=== PATIENT | male | born 1970 | race Caucasian/White ===

== ENCOUNTER 2018-08-30 04:55 | Observation (INO) | payer MEDICAID ==
--- NOTE | 2018-08-30 05:06 | EDPHY ---
H & P Stated Complaint: 0200 upper abd pain Source: Patient - Personal History Current Tetanus/Diphtheria Vaccine: Yes Current Tetanus Diphtheria and Acellular Pertussis (TDAP): Yes - Medical/Surgical History Hx Asthma: No Hx Chronic Respiratory Disease: No Hx Diabetes: No Hx Cardiac Disease: No Hx Renal Disease: No Hx Cirrhosis: No Hx Alcoholism: No Hx HIV/AIDS: No Hx Splenectomy or Spleen Trauma: No Other PMH: denies - Social History Smoking Status: Current every day smoker <Barrett Porras - Last Filed: 08/30/18 08:03> <Sondra Worley - Last Filed: 08/30/18 17:02> Time Seen by Provider: 08/30/18 05:06 HPI/ROS: HPI CHIEF COMPLAINT: Abdominal pain. HISTORY OF PRESENT ILLNESS: Patient is a 47-year-old male, denies significant medical history except for hypertension, presents to the emergency room with abdominal pain. This started around 2:00 a.m.. Woke him from sleep. He does state that he had 3 beers tonight as well as chicken Haile, felt fine he ate and drank around 530 at night. He went to bed. Around 2:00 a.m. He woke with upper abdominal pain and did have 1 episode of vomiting. He denies any chest pain or shortness of breath. No diarrhea. He is mainly tender in his upper abdomen right upper quadrant epigastric and mid abdomen. Past Medical History: Hypertension Past Surgical History: ASD cardiac repair at age 3 Social History: Occasional alcohol use. Smokes tobacco. Marijuana. Family History: Noncontributory ROS REVIEW OF SYSTEMS: 10 Systems were reviewed and negative with the exception of the elements mentioned in the history of present illness. Exam Constitutional triage nursing summary reviewed, vital signs reviewed, awake/ alert. Eyes normal conjunctivae and sclera, EOMI, PERRLA. HENT normal inspection, atraumatic, moist mucus membranes, no epistaxis, neck supple/ no meningismus, no raccoon eyes. Respiratory clear to auscultation bilaterally, normal breath sounds, no respiratory distress, no wheezing. Cardiovascular rate normal, regular rhythm, no murmur, no edema, distal pulses normal. Gastrointestinal protuberant large abdomen, mild tender palpation right upper quadrant, mid abdomen, epigastric,, no rebound, no guarding, normal bowel sounds , no distension, no pulsatile mass. Genitourinary no CVA tenderness. Musculoskeletal no midline vertebral tenderness, full range of motion, no calf swelling, no tenderness of extremities, no meningismus, good pulses, neurovascularly intact. Skin pink, warm, & dry, no rash, skin atraumatic. Neurologic awake, alert and oriented x 3, AAOx3, moves all 4 extremities equally, motor intact, sensory intact, CN II-XII intact, normal cerebellar, normal vision, normal speech. Psychiatric normal mood/affect. Heme/Lymph/Immune no lymphadenopathy. Differential Diagnosis: Differential diagnosis includes but is not limited to and in no particular order: Bowel obstruction, appendicitis, gallbladder disease, diverticulitis, colitis, enteritis, perforated viscus, gastritis, GERD , esophagitis, urinary tract infection, pyelonephritis, kidney stones Medical Decision Making: Plan for this patient IV establishment IV fluid bolus , IV Dilaudid 1 mg for pain control, basic labs CT scan abdomen pelvis with IV contrast. Re-evaluation: Troponin negative. EKG interpretation by me on record in [employer] system. Impression time of EKG 5:26 a.m. Sinus rhythm rate of 69, left anterior fascicular block present. No ST elevation. There are Q-waves noted V1 V2 V3. No old EKG to compare this to. CT scan abdomen pelvis with IV contrast faxed me by direct Radiology at time 6: 49 a.m. This shows a 2.5 cm gallstone is noted in the gallbladder neck recommend right upper quadrant ultrasound Fatty infiltration liver. Plan for this patient ultrasound right upper quadrant. 7am End of shift: Signed over at 7:[address] Worley. Follow up US and re-eval patient. Patient still needs to get US. CT scan concerning for impacted neck stone. Most likely cause of pain. Will obtain us/ re-eval and most likely admit due to abdominal pain. No cp or sob. Negative trop. Signed over to Dr. Worley at 7am. (Barrett Porras) Constitutional: Initial Vital Signs Temperature (C) 36.6 C 08/30/18 04:57 Heart Rate 83 08/30/18 04:57 Respiratory Rate 18 08/30/18 04:57 Blood Pressure 181/125 H 08/30/18 04:57 O2 Sat (%) 95 08/30/18 04:57 O2 Delivery Mode Nasal Cannula O2 (L/minute) 4 Allergies/Adverse Reactions: No Known Allergies Allergy (Verified 08/30/18 11:38) Home Medications: Medication Instructions Recorded Atorvastatin Calcium [Lipitor 40 40 mg PO DAILY 08/30/18 mg (*)] Ibuprofen [Motrin (*)] 200 mg PO DAILY PRN 08/30/18 Losartan Potassium 100 mg PO DAILY 08/30/18 Omeprazole 20 mg PO DAILY 08/30/18 Medical Decision Making <Barrett Porras - Last Filed: 08/30/18 08:03> - Diagnostics Imaging: Discussed imaging studies w/ plant physiologist Radiologist <Sondra Worley - Last Filed: 08/30/18 17:02> - Diagnostics Imaging Results: Imaging Impressions Abdomen CT 08/30/18 05:15 Impression: 1. Cholelithiasis without evidence of acute cholecystitis. With high clinical suspicion for acute cholecystitis, nuclear medicine HIDA scan or right upper quadrant ultrasound could be obtained for further evaluation. 2. Nonspecific submucosal fat deposition which may be secondary to obesity, however can also be seen with inflammatory bowel disease or celiac disease. 3. Perivesicular fat haziness is nonspecific but may represent cystitis, clinical/laboratory correlation is recommended. Final results are concordant with initial interpretation. Preliminary report was communicated to the referring provider at 6:49 AM. DANYELLE. Abdomen Ultrasound 08/30/18 06:54 Impression: 1. Cholelithiasis without evidence of acute cholecystitis. 2. Diffuse fatty infiltration of an enlarged liver. Other Provider: I assumed care of this patient at 7:[address] Barrett Porras. At this point we are awaiting the results of a ultrasound. Patient's ultrasound demonstrates a 2.5 cm gallstone lodged in the gallbladder neck. There are multiple nonmobile stones in the gallbladder. No gallbladder wall thickening, common bile duct is normal in size, no pericholecystic fluid. On re-examination the patient continues to have significant discomfort. Has a positive Rosario's sign. Patient course was discussed with Dr. Fredy York. Dr. York will evaluate the patient in Emergency Department. Seen and examined by the surgeon. Patient will be admitted to the hospital of Dr. York's service with plan for operative intervention later today. ( Sondra Worley) - Data Points Laboratory Results: Laboratory Results 08/30/18 05:30 08/30/18 05:30 08/30/18 08/30/18 08/30/18 09:34 08:42 05:37 WBC RBC Hgb POC Hgb 19.4 gm/dL H gm/dL (13.7-17.5) Hct POC Hct 57 % H % (40-51) MCV MCH MCHC RDW Plt Count MPV Neut % (Auto) Lymph % (Auto) King % (Auto) Eos % (Auto) Baso % (Auto) Nucleat RBC Rel Count Absolute Neuts (auto) Absolute Lymphs (auto) Absolute Monos (auto) Absolute Eos (auto) Absolute Basos (auto) Absolute Nucleated RBC Immature Gran % Immature Gran # PT INR APTT VBG Lactic Acid 1.5 mmol/L mmol/L (0.7-2.1) POC Sodium 141 mEq/L mEq/L (135-145) Sodium POC Potassium 4.0 mEq/L mEq/L (3.3-5.0) Potassium POC Chloride 106 mEq/L mEq/L (97-110) Chloride Carbon Dioxide POC Total CO2 20 mEq/L L mEq/L (22-31) Anion Gap POC BUN 14 mg/dL mg/dL (7-23) BUN Creatinine POC Creatinine 1.0 mg/dL mg/dL (0.7-1.3) Estimated GFR Glucose POC Glucose 145 mg/dL H mg/dL (70-100) Calcium Total Bilirubin Conjugated Bilirubin Unconjugated Bilirubin AST ALT Alkaline Phosphatase POC Troponin I Total Protein Albumin Lipase Urine Color YELLOW Urine Appearance CLEAR Urine pH 5.0 (5.0-7.5) Ur Specific [place] > 1.060 H (1.002-1.030) Urine Protein NEGATIVE (NEGATIVE) Urine Ketones NEGATIVE (NEGATIVE) Urine Blood NEGATIVE (NEGATIVE) Urine Nitrate NEGATIVE (NEGATIVE) Urine Bilirubin NEGATIVE (NEGATIVE) Urine Urobilinogen NEGATIVE EU EU (0.2-1.0) Ur Leukocyte Esterase NEGATIVE (NEGATIVE) Urine Glucose NEGATIVE (NEGATIVE) 08/30/18 08/30/18 08/30/18 05:32 05:30 05:30 WBC RBC Hgb POC Hgb Hct POC Hct MCV MCH MCHC RDW Plt Count MPV Neut % (Auto) Lymph % (Auto) King % (Auto) Eos % (Auto) Baso % (Auto) Nucleat RBC Rel Count Absolute Neuts (auto) Absolute Lymphs (auto) Absolute Monos (auto) Absolute Eos (auto) Absolute Basos (auto) Absolute Nucleated RBC Immature Gran % Immature Gran # PT 12.1 SEC SEC (12.0-15.0) INR 0.93 (0.83-1.16) APTT 28.6 SEC SEC (23.0-38.0) VBG Lactic Acid POC Sodium Sodium 139 mEq/L mEq/L (135-145) POC Potassium Potassium 4.6 mEq/L mEq/L (3.5-5.2) POC Chloride Chloride 108 mEq/L mEq/L (97-110) Carbon Dioxide 19 mEq/l L mEq/l (22-31) POC Total CO2 Anion Gap 12 mEq/L mEq/L (6-14) POC BUN BUN 14 mg/dL mg/dL (7-23) Creatinine 0.9 mg/dL mg/dL (0.7-1.3) POC Creatinine Estimated GFR > 60 Glucose 141 mg/dL H mg/dL (70-100) POC Glucose Calcium 10.0 mg/dL mg/dL (8.5-10.4) Total Bilirubin 0.8 mg/dL mg/dL (0.1-1.4) Conjugated Bilirubin 0.3 mg/dL mg/dL (0.0-0.5) Unconjugated Bilirubin 0.5 mg/dL mg/dL (0.0-1.1) AST 55 IU/L IU/L (17-59) ALT 80 IU/L H IU/L (21-72) Alkaline Phosphatase 170 IU/L H IU/L (38-126) POC Troponin I 0.01 ng/mL ng/mL (0.00-0.08) Total Protein 7.5 g/dL g/dL (6.3-8.2) Albumin 4.4 g/dL g/dL (3.5-5.0) Lipase 145 IU/L IU/L (23-300) Urine Color Urine Appearance Urine pH Ur Specific [place] Urine Protein Urine Ketones Urine Blood Urine Nitrate Urine Bilirubin Urine Urobilinogen Ur Leukocyte Esterase Urine Glucose 08/30/18 05:30 WBC 7.12 10^3/uL 10^3/uL (3.80-9.50) RBC 6.38 10^6/uL 10^6/uL (4.40-6.38) Hgb 18.7 g/dL H g/dL (13.7-17.5) POC Hgb Hct 56.0 % H % (40.0-51.0) POC Hct MCV 87.8 fL fL (81.5-99.8) MCH 29.3 pg pg (27.9-34.1) MCHC 33.4 g/dL g/dL (32.4-36.7) RDW 14.6 % % (11.5-15.2) Plt Count 264 10^3/uL 10^3/uL (150-400) MPV 10.1 fL fL (8.7-11.7) Neut % (Auto) 61.2 % % (39.3-74.2) Lymph % (Auto) 21.2 % % (15.0-45.0) King % (Auto) 9.8 % % (4.5-13.0) Eos % (Auto) 5.9 % % (0.6-7.6) Baso % (Auto) 1.5 % % (0.3-1.7) Nucleat RBC Rel Count 0.0 % % (0.0-0.2) Absolute Neuts (auto) 4.35 10^3/uL 10^3/uL (1.70-6.50) Absolute Lymphs (auto) 1.51 10^3/uL 10^3/uL (1.00-3.00) Absolute Monos (auto) 0.70 10^3/uL 10^3/uL (0.30-0.80) Absolute Eos (auto) 0.42 10^3/uL H 10^3/uL (0.03-0.40) Absolute Basos (auto) 0.11 10^3/uL H 10^3/uL (0.02-0.10) Absolute Nucleated RBC 0.00 10^3/uL 10^3/uL (0-0.01) Immature Gran % 0.4 % % (0.0-1.1) Immature Gran # 0.03 10^3/uL 10^3/uL (0.00-0.10) PT INR APTT VBG Lactic Acid POC Sodium Sodium POC Potassium Potassium POC Chloride Chloride Carbon Dioxide POC Total CO2 Anion Gap POC BUN BUN Creatinine POC Creatinine Estimated GFR Glucose POC Glucose Calcium Total Bilirubin Conjugated Bilirubin Unconjugated Bilirubin AST ALT Alkaline Phosphatase POC Troponin I Total Protein Albumin Lipase Urine Color Urine Appearance Urine pH Ur Specific [place] Urine Protein Urine Ketones Urine Blood Urine Nitrate Urine Bilirubin Urine Urobilinogen Ur Leukocyte Esterase Urine Glucose Medications Given: Hydromorphone HCl (Dilaudid) 0.4 mg IVP Q4HRS PRN PRN Reason: Pain, Severe Unable to Take PO Stop: 09/09/18 09:47 Last Admin: 08/30/18 16:28 Dose: 0.4 mg Potassium Chloride/Dextrose/Sod Cl (D5w 1/2 Ns W/ 20 Kcl/L) 1,000 mls @ 150 mls /hr IV CONT JOVI Stop: 02/26/19 09:59 Last Admin: 08/30/18 11:28 Dose: 1,000 mls Ondansetron HCl (Zofran) 4 mg IVP Q6 PRN PRN Reason: Nausea/Vomiting, Use 1st Stop: 02/26/19 09:47 Last Admin: 08/30/18 16:37 Dose: 4 mg Discontinued Medications Hydromorphone HCl (Dilaudid) 1 mg IVP EDNOW ONE Stop: 08/30/18 05:16 Last Admin: 08/30/18 05:26 Dose: 1 mg Hydromorphone HCl (Dilaudid) 1 mg IVP EDNOW ONE Stop: 08/30/18 07:21 Last Admin: 08/30/18 07:28 Dose: 1 mg Hydromorphone HCl (Dilaudid) 1 mg IVP EDNOW ONE Stop: 08/30/18 09:09 Last Admin: 08/30/18 09:17 Dose: 1 mg Sodium Chloride (Ns) 1,000 mls @ 0 mls/hr IV EDNOW ONE; Wide Open PRN Reason: Protocol Stop: 08/30/18 05:16 Last Admin: 08/30/18 05:27 Dose: 1,000 mls Sodium Chloride (Ns) 1,000 mls @ 0 mls/hr IV ONCE ONE PRN Reason: Wide Open Stop: 08/30/18 07:21 Last Admin: 08/30/18 07:27 Dose: 1,000 mls Lactated Ringer's (Lr) 1,000 mls @ 0 mls/hr IV ONCE ONE PRN Reason: KVO Stop: 08/30/18 15:43 Last Admin: 08/30/18 15:48 Dose: 1,000 mls Ketorolac Tromethamine (Toradol) 30 mg IVP EDNOW ONE Stop: 08/30/18 09:09 Last Admin: 08/30/18 09:16 Dose: 30 mg Ondansetron HCl (Zofran) 4 mg IVP EDNOW ONE Stop: 08/30/18 05:16 Last Admin: 08/30/18 05:26 Dose: 4 mg Point of Care Test Results: Chemistry 08/30/18 08/30/18 05:37 05:32 POC Sodium 141 mEq/L mEq/L (135-145) POC Potassium 4.0 mEq/L mEq/L (3.3-5.0) POC Chloride 106 mEq/L mEq/L (97-110) POC Total CO2 20 mEq/L L mEq/L (22-31) POC BUN 14 mg/dL mg/dL (7-23) POC Creatinine 1.0 mg/dL mg/dL (0.7-1.3) POC Glucose 145 mg/dL H mg/dL (70-100) POC Troponin I 0.01 ng/mL ng/mL (0.00-0.08) ISTAT H&H 08/30/18 05:37 POC Hgb 19.4 gm/dL H gm/dL (13.7-17.5) POC Hct 57 % H % (40-51) Departure <Barrett Porras - Last Filed: 08/30/18 08:03> <Sondra Worley - Last Filed: 08/30/18 17:02> - Departure Disposition: [facility] Inpatient Acute Clinical Impression: Abdominal pain Condition: Serious
[2018-08-30] MEDS ORDERED: HYDROmorphONE/DILAUDID 2 MG/ML INJ IVP ONE ×3 (05:15→09:08)
[2018-08-30] MEDS ORDERED: ONDANSETRON 4 MG/2 ML VIAL IVP ONE (05:15)
[2018-08-30] MEDS ORDERED: NS 1,000 ML IV ONE ×2 (05:15→07:20)
[2018-08-30 05:39] LABS: PLATELET COUNT 264 10^3/uL (150-400)
[2018-08-30] MEDS ORDERED: IOPAMIDOL (ISOVUE-300) 100 ML BTL ONE (05:41)
[2018-08-30 06:07] LABS: INR 0.93 (0.83-1.16); PROTIME(PATIENT) 12.1 SEC (12.0-15.0)
[2018-08-30] MEDS ORDERED: KETOROLAC 30 MG/1 ML SDV IVP ONE (09:08)
[2018-08-30] MEDS ORDERED: ONDANSETRON 4 MG/2 ML VIAL IVP PRN ×2 (09:48→19:22)
[2018-08-30] MEDS ORDERED: ceFAZolin 3 GM in D5W 100 ML IV ONE (09:48)
[2018-08-30] MEDS ORDERED: D5W 1/2 NS W/ 20 KCl/L 1,000 ML IV SCH (10:00)
[2018-08-30] MEDS: HYDROmorphONE/DILAUDID 1 MG/ML INJ IVP PRN ×2 (11:26→16:28)
--- NOTE | 2018-08-30 12:07 | PDGENHP ---
History and Physical - Chief Complaint Abdominal pain - History of Present Illness 47-year-old male who presents with acute onset abdominal pain. Patient states that he was in his usual state of health last night when he began to have progressive epigastric abdominal pain. He states that he went to bed feeling well, had some abdominal bloating but this is an out of the norm for him. The bloating turned into abdominal pain with nausea which prompted his presentation here. He describes the pain as sharp radiating to the right upper quadrant. Pain is worse with eating or movement. It is better with narcotics. Is currently an 8 out of 10 in intensity he has never had pain like this before History Information - Allergies/Home Medication List Allergies/Adverse Reactions: No Known Allergies Allergy (Verified 08/30/18 11:38) Home Medications: Atorvastatin Calcium [Lipitor 40 mg (*)] 40 mg PO DAILY 08/30/18 [Last Taken ] Ibuprofen [Motrin (*)] 200 mg PO DAILY PRN 08/30/18 [Last Taken 08/28/18] Losartan Potassium 100 mg PO DAILY 08/30/18 [Last Taken 08/29/18] Omeprazole 20 mg PO DAILY 08/30/18 [Last Taken 08/29/18] I have personally reviewed and updated: family history, medical history, social history, surgical history Past Medical History: Hypertension, hyperlipidemia - Surgical History Additional surgical history: Had open heart surgery as an infant for an ASD - Family History Positive for: non-pertinent - Social History Smoking Status: Current every day smoker Alcohol Use: Other (Couple beers every other day) Drug Use: None Additional social history: Works construction, 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 Review of Systems Review of Systems: ROS: 10pt was reviewed & negative except for what was stated in HPI & below Physical Exam Physical Exam: Temp Pulse Resp BP Pulse Ox 36.4 C 84 18 168/95 H 96 08/30/18 11:30 08/30/18 11:30 08/30/18 11:30 08/30/18 11:30 08/30/18 11:30 O2 (L/minute) 4 Constitutional: appears nourished, not in pain, obese, uncomfortable Eyes: PERRL, anicteric sclera, EOMI Ears, Nose, Mouth, Throat: moist mucous membranes, hearing normal, ears appear normal, no oral mucosal ulcers Cardiovascular: regular rate and rhythym, no murmur, rub, or gallop, No edema Respiratory: no respiratory distress, no rales or rhonchi, clear to auscultation Gastrointestinal: normoactive bowel sounds, no palpable masses, other (Obese, tender to palpation in the right upper quadrant with positive Rosario's) Genitourinary: no bladder fullness, no bladder tenderness Skin: warm, normal color, no rashes or abrasions, no fluctuance, no induration, No mottled Musculoskeletal: full muscle strength, no muscle tenderness, normal joint ROM, no joint effusions Psychiatric: interacting appropriately, not anxious, not encephalopathic, thought process linear Lymph, Heme, Immunologic: no cervical LAD, no supraclavicular LAD Lab Data & Imaging Review 08/30/18 05:30 08/30/18 05:30 WBC 7.12 10^3/uL (3.80-9.50) 08/30/18 05:30 RBC 6.38 10^6/uL (4.40-6.38) 08/30/18 05:30 Hgb 18.7 g/dL (13.7-17.5) H 08/30/18 05:30 POC Hgb 19.4 gm/dL (13.7-17.5) H 08/30/18 05:37 Hct 56.0 % (40.0-51.0) H 08/30/18 05:30 POC Hct 57 % (40-51) H 08/30/18 05:37 MCV 87.8 fL (81.5-99.8) 08/30/18 05:30 MCH 29.3 pg (27.9-34.1) 08/30/18 05:30 MCHC 33.4 g/dL (32.4-36.7) 08/30/18 05:30 RDW 14.6 % (11.5-15.2) 08/30/18 05:30 Plt Count 264 10^3/uL (150-400) 08/30/18 05:30 MPV 10.1 fL (8.7-11.7) 08/30/18 05:30 Neut % (Auto) 61.2 % (39.3-74.2) 08/30/18 05:30 Lymph % (Auto) 21.2 % (15.0-45.0) 08/30/18 05:30 [place] % (Auto) 9.8 % (4.5-13.0) 08/30/18 05:30 Eos % (Auto) 5.9 % (0.6-7.6) 08/30/18 05:30 Baso % (Auto) 1.5 % (0.3-1.7) 08/30/18 05:30 Nucleat RBC Rel Count 0.0 % (0.0-0.2) 08/30/18 05:30 Absolute Neuts (auto) 4.35 10^3/uL (1.70-6.50) 08/30/18 05:30 Absolute Lymphs (auto) 1.51 10^3/uL (1.00-3.00) 08/30/18 05:30 Absolute Monos (auto) 0.70 10^3/uL (0.30-0.80) 08/30/18 05:30 Absolute Eos (auto) 0.42 10^3/uL (0.03-0.40) H 08/30/18 05:30 Absolute Basos (auto) 0.11 10^3/uL (0.02-0.10) H 08/30/18 05:30 Absolute Nucleated RBC 0.00 10^3/uL (0-0.01) 08/30/18 05:30 Immature Gran % 0.4 % (0.0-1.1) 08/30/18 05:30 Immature Gran # 0.03 10^3/uL (0.00-0.10) 08/30/18 05:30 PT 12.1 SEC (12.0-15.0) 08/30/18 05:30 INR 0.93 (0.83-1.16) 08/30/18 05:30 APTT 28.6 SEC (23.0-38.0) 08/30/18 05:30 VBG Lactic Acid 1.5 mmol/L (0.7-2.1) 08/30/18 08:42 POC Sodium 141 mEq/L (135-145) 08/30/18 05:37 Sodium 139 mEq/L (135-145) 08/30/18 05:30 POC Potassium 4.0 mEq/L (3.3-5.0) 08/30/18 05:37 Potassium 4.6 mEq/L (3.5-5.2) 08/30/18 05:30 POC Chloride 106 mEq/L (97-110) 08/30/18 05:37 Chloride 108 mEq/L (97-110) 08/30/18 05:30 Carbon Dioxide 19 mEq/l (22-31) L 08/30/18 05:30 POC Total CO2 20 mEq/L (22-31) L 08/30/18 05:37 Anion Gap 12 mEq/L (6-14) 08/30/18 05:30 POC BUN 14 mg/dL (7-23) 08/30/18 05:37 BUN 14 mg/dL (7-23) 08/30/18 05:30 Creatinine 0.9 mg/dL (0.7-1.3) 08/30/18 05:30 POC Creatinine 1.0 mg/dL (0.7-1.3) 08/30/18 05:37 Estimated GFR > 60 08/30/18 05:30 Glucose 141 mg/dL (70-100) H 08/30/18 05:30 POC Glucose 145 mg/dL (70-100) H 08/30/18 05:37 Calcium 10.0 mg/dL (8.5-10.4) 08/30/18 05:30 Total Bilirubin 0.8 mg/dL (0.1-1.4) 08/30/18 05:30 Conjugated Bilirubin 0.3 mg/dL (0.0-0.5) 08/30/18 05:30 Unconjugated Bilirubin 0.5 mg/dL (0.0-1.1) 08/30/18 05:30 AST 55 IU/L (17-59) 08/30/18 05:30 ALT 80 IU/L (21-72) H 08/30/18 05:30 Alkaline Phosphatase 170 IU/L (38-126) H 08/30/18 05:30 POC Troponin I 0.01 ng/mL (0.00-0.08) 08/30/18 05:32 Total Protein 7.5 g/dL (6.3-8.2) 08/30/18 05:30 Albumin 4.4 g/dL (3.5-5.0) 08/30/18 05:30 Lipase 145 IU/L (23-300) 08/30/18 05:30 Urine Color YELLOW 08/30/18 09:34 Urine Appearance CLEAR 08/30/18 09:34 Urine pH 5.0 (5.0-7.5) 08/30/18 09:34 Ur Specific [place] > 1.060 (1.002-1.030) H 08/30/18 09:34 Urine Protein NEGATIVE (NEGATIVE) 08/30/18 09:34 Urine Ketones NEGATIVE (NEGATIVE) 08/30/18 09:34 Urine Blood NEGATIVE (NEGATIVE) 08/30/18 09:34 Urine Nitrate NEGATIVE (NEGATIVE) 08/30/18 09:34 Urine Bilirubin NEGATIVE (NEGATIVE) 08/30/18 09:34 Urine Urobilinogen NEGATIVE EU (0.2-1.0) 08/30/18 09:34 Ur Leukocyte Esterase NEGATIVE (NEGATIVE) 08/30/18 09:34 Urine Glucose NEGATIVE (NEGATIVE) 08/30/18 09:34 Visualized and Interpreted imaging results: Yes Interpretation: Both ultrasound and CT scan show cholelithiasis, normal gallbladder wall, normal duct. There does appear to be a stone impacted in the gallbladder neck. Images also show fatty infiltration of the liver diffusely Assessment & Plan Assessment: Abdominal pain (Acute) Plan: 47-year-old male with gall stone impacted in the cystic duct neck. Clinical presentation consistent with cholecystitis Will plan to take the patient to the operating room for laparoscopic cholecystectomy. The risks benefits and alternatives were discussed
[2018-08-30] MEDS ORDERED: LR 1,000 ML IV ONE (15:42)
[2018-08-30] MEDS ORDERED: HYDROmorphONE/DILAUDID 1 MG/ML INJ ONE ×2 (16:22→16:26)
[2018-08-30] MEDS ORDERED: MIDAZOLAM 2 MG/2 ML VIAL IVP ONE (17:43)
--- NOTE | 2018-08-30 17:47 | PDANEPAE ---
ANE History of Present Illness acute cholecystitis ANE Past Medical History - Cardiovascular History Hx Hypertension: Yes Hx Arrhythmias: No Hx Chest Pain: No Hx Coronary Artery / Peripheral Vascular Disease: No Hx CHF / Valvular Disease: No Hx Palpitations: No Cardiovascular History Comment: h/o ASD closed as child - Pulmonary History Hx COPD: No Hx Asthma/Reactive Airway Disease: No Hx Recent Upper Respiratory Infection: No Hx Oxygen in Use at Home: No Hx Sleep Apnea: Yes Sleep Apnea Screening Result - Last Documented: Positive Pulmonary History Comment: +ELIZABETH. +Current Smoker - Endocrine History Hx Diabetes: No Hypothyroid: No Hyperthyroid: No Obesity: moderate - Renal History Hx Renal Disorders: No - Liver History Hx Hepatic Disorders: No - GI History GERD: mild - Chronic Pain History Chronic Pain: No ANE Review of Systems Review of systems is: negative Review of Systems: - Exercise capacity Exercise capacity: >=4 METS ANE Patient History - Allergies Allergies/Adverse Reactions: No Known Allergies Allergy (Verified 08/30/18 11:38) - Home Medications Home Medications: Atorvastatin Calcium [Lipitor 40 mg (*)] 40 mg PO DAILY 08/30/18 [Last Taken ] Ibuprofen [Motrin (*)] 200 mg PO DAILY PRN 08/30/18 [Last Taken 08/28/18] Losartan Potassium 100 mg PO DAILY 08/30/18 [Last Taken 08/29/18] Omeprazole 20 mg PO DAILY 08/30/18 [Last Taken 08/29/18] - NPO status NPO Status: no food or drink >8 hours NPO Since - Liquids (Date): 08/30/18 NPO Since - Liquids (Time): 05:00 NPO Since - Solids (Date): 08/30/18 NPO Since - Solids (Time): 05:00 - Anes Hx Anes Hx: no prior problems - Smoking Hx Smoking Status: Current every day smoker - Alcohol Use Alcohol Use: Other (Couple beers every other day) ANE Labs/Vital Signs - Labs Result Diagrams: 08/30/18 05:30 08/30/18 05:30 - Vital Signs Blood Pressure: 168/108 Heart Rate: 100 Respiratory Rate: 16 O2 Sat (%): 92 Height: 193.04 cm Weight: 136.078 kg ANE Physical Exam - Airway Neck exam: FROM Mallampati Score: Class 3 Mouth exam: normal dental/mouth exam - Pulmonary Pulmonary: no respiratory distress, clear to auscultation - Cardiovascular Cardiovascular: regular rate and rhythym - ASA Status ASA Status: III ANE Anesthesia Plan Anesthesia Plan: general endotracheal anesthesia
[2018-08-30] MEDS ORDERED: fentaNYL 100 MCG/2 ML INJ ONE (18:14)
[2018-08-30] MEDS ORDERED: PROPOFOL 200 MG/20 ML VIAL ONE ×2 (18:14)
[2018-08-30] MEDS ORDERED: LIDOCAINE 2% 5 ML SDV ONE (18:17)
[2018-08-30] MEDS ORDERED: BUPIVACAINE/EPI 0.25% 30 ML SDV ONE (18:17)
[2018-08-30] MEDS ORDERED: ROCURONIUM 100 MG/10 ML VIAL ONE (18:17)
[2018-08-30] MEDS ORDERED: DEXAMETHASONE 4 MG/ML VIAL ONE ×2 (18:58)
[2018-08-30] MEDS ORDERED: HYDROmorphONE/DILAUDID 1 MG/ML INJ IVP PRN (19:22)
[2018-08-30] MEDS ORDERED: NS 500 ML IV PRN (19:22)
[2018-08-30] MEDS ORDERED: NALOXONE HCL 0.4 MG/ML INJ IVP PRN (19:22)
[2018-08-30] MEDS ORDERED: ALBUTEROL 3 ML DEYVIAL IH PRN (19:22)
[2018-08-30] MEDS ORDERED: LABETALOL HCL 5 MG/ML 20 ML MDV IVP PRN (19:22)
[2018-08-30] MEDS ORDERED: PROMETHAZINE HCL 25 MG/ML INJ IVP PRN (19:22)
[2018-08-30] MEDS ORDERED: LR 500 ML IV PRN (19:22)
[2018-08-30] MEDS ORDERED: fentaNYL 100 MCG/2 ML INJ IVP PRN (19:22)
[2018-08-30] MEDS ORDERED: PHENYLEPHRINE HCL 100 MCG/ML SYR IVP PRN (19:22)
[2018-08-30] MEDS ORDERED: METOCLOPRAMIDE 10 MG/2 ML VIAL IVP PRN (19:22)
[2018-08-30] MEDS ORDERED: DEXAMETHASONE 4 MG/ML VIAL IVP PRN (19:22)
[2018-08-30] MEDS ORDERED: KETOROLAC 30 MG/1 ML SDV ONE (19:36)
[2018-08-30] MEDS ORDERED: ONDANSETRON 4 MG/2 ML VIAL ONE (19:36)
[2018-08-30] MEDS ORDERED: SUGAMMADEX SODIUM 200 MG/2 ML VIAL IVP ONE ×2 (20:25)
--- NOTE | 2018-08-30 20:53 | POSTANESTH ---
Post Anesthetic Evaluation Cardiovascular Status: Similar to Pre-Op Cond (Pt tachycardic in pre-op) Respiratory Status: Similar to Pre-op Cond. (Pt requiring oxygen in pre-op. spO2 in 80s on RA.) Level of Consciousness/Mental Status: Can Participate in Eval, Alert and Oriented Pain Control: Adequate, Prn Tx Ordered Nausea/Vomiting Control: Adequate, Prn Tx Ordered Complications Possibly Related to Anesthesia: None Noted
[2018-08-30] MEDS ORDERED: MEPERIDINE 25 MG/0.5 ML AMP ONE (21:06)
[2018-08-30] MEDS: MEPERIDINE 25 MG/0.5 ML AMP IVP PRN ×2 (21:09→21:20)
--- NOTE | 2018-08-30 21:21 | POSTOPPROG ---
Post Op Note Date of Operation: 08/30/18 Surgeon: Fredy York Anesthesiologist: Sandra Anesthesia: GET(General Endotracheal) Pre-op Diagnosis: cholecystitis Post-op Diagnosis: same Procedure: Lap wen Findings: dense adhesions, difficult dissection 2/2 large liver, abd fat Inf/Abcess present in the surg proc area at time of surgery?: No EBL: Minimal Total fluids administered: 1L Specimen(s): GB
--- NOTE | 2018-08-30 21:52 | GOP ---
[f rep st] OPERATIVE REPORT DATE OF OPERATION: 08/30/2018 SURGEON: Fredy York MD ANESTHESIA: General endotracheal by Dr. Remi Flores. PREOPERATIVE DIAGNOSIS: Acute cholecystitis. POSTOPERATIVE DIAGNOSIS: Acute cholecystitis. PROCEDURE PERFORMED: Laparoscopic cholecystectomy. FINDINGS: Very dense adhesions to the infundibulum of the gallbladder, difficult dissection given significantly enlarged liver and large amount of intraabdominal fat. SPECIMENS: Gallbladder. ESTIMATED BLOOD LOSS: 30 mL. DESCRIPTION OF PROCEDURE: The patient was greeted in the preoperative suite. Once again, risks, benefits, and alternatives were discussed. Consent was signed. He was then brought back to the operative suite, placed on the OR table in supine position. After all anesthesia machines, including SCDs, were on and functioning, World Health [employer] time-out was performed. After successful induction of general anesthesia, the patient's abdomen was prepped and draped in typical sterile fashion. I commenced the procedure by creating an infraumbilical cutdown through which the Veress needle was passed. I achieved pneumoperitoneum to 15 mmHg, which was well tolerated by the patient. Through this, I then inserted a 5 mm trocar using the Visiport technique. Once successfully in the abdomen, I placed 3 additional trocars, 12 mm in the subxiphoid, two 5 mm in the right upper quadrant. I identified the gallbladder. It was covered with a dense amount of omental and fatty adhesions. Given the significant fatty enlargement of the liver, retraction of it and dissection of the infundibulum was actually quite difficult. In order to facilitate this, I actually performed a dome down approach, removing the gallbladder proper from the liver bed starting at the base and carrying this inferiorly. Once I got near the infundibulum, I was actually able to dissect this out. There was a significant amount of dense fatty adhesions around the infundibulum of the gallbladder. One of these included what appeared to be the cystic artery. I successfully clipped and divided this. The remainder of the dense fatty attachments were taken down with electrocautery after they were skeletonized. Once this was done, I dissected out the infundibulum and found one remaining structure leading to the gallbladder proper, which appeared to be the cystic duct. Again, it was completely skeletonized off the liver bed. I found no other significant anatomy, and this was somewhat enlarged, so I did successfully divide it using a single fire of the Endo-JACLYN 35 load stapler. The gallbladder was then passed off. There was a little bleeding in the infundibulum. I packed this off initially. I irrigated the area. I clipped one additional area which was bleeding, which was adjacent to the initial artery. I found no other significant findings. Right upper quadrant was irrigated with sterile saline, noting clear effluent in the suction canister. Milton was placed in the operative bed for additional hemostasis. There was no breakthrough bleeding noted here. Local anesthesia was infiltrated into the port sites, which were then removed. The subxiphoid site was closed with a 0 Vicryl stitch, noting excellent fascial reapproximation. The skin was closed with Monocryl. Dermabond was placed. The patient was then extubated in the operative suite and taken to the PACU in satisfactory condition. DRAINS: None. COUNTS: All counts were reported as correct x2. /[id number]/MODL MTDD
[2018-08-30] MEDS: oxyCODONE IR 5 MG TAB PO PRN (22:29)
[2018-08-31] MEDS: oxyCODONE IR 5 MG TAB PO PRN ×5 (03:39→22:30)
[2018-08-31] MEDS: PANTOPRAZOLE SODIUM 40 MG TAB PO SCH (07:57)
[2018-08-31] MEDS: LOSARTAN POTASSIUM 50 MG TAB PO SCH (07:57)
[2018-08-31] MEDS: ATORVASTATIN CALCIUM 40 MG TAB PO SCH (07:57)
[2018-08-31] MEDS: NICOTINE 21 MG/24 HR PATCH TD SCH (11:26)
--- NOTE | 2018-08-31 14:21 | ASMTCMCOM ---
CM Note CM Note Notes: Pt is a 47 y/o man admitted for abdominal pain. Pt had his gallbladder removed. Pt will most likely d/c independent when medically stable. Referral made to [facility]. Pt is self employed. CM available for changes. Plan: Independent Date Signed: 08/31/2018 02:20 PM Electronically Signed By:KIKI Farley
--- NOTE | 2018-08-31 17:16 | SOAPPROG ---
SOAP Progress Note Assessment/Plan: Assessment/Plan: 47 Y M s/p lap wen, POD#1. Seen and examined before noon today. O2 needs at 5 L this am. Patient a 1 pack per day tobacco smoker with motivation for cessation. Patient recently put on CPAP at night for ELIZABETH as an outpatient. Asked RT to see patient earlier today. Nicotine patch ordered and Rx for continuing at home in chart. Pain controlled. PO pain Rx in chart for home. Tolerating diet. Dispo: pending improvement of multifactorial hypoxia. S: No pain. Eager to go home but understands is need for O2. Wants to quit smoking. He has a quit date in October. He quit for 6 months once. He is interested in nicotine patches. O: alert, nad clear anteriorly but some wheezes at base rrr abd obese, +BS, inc's cdi 08/31/18 17:09 Objective: Vital Signs Temp Pulse Resp BP Pulse Ox 37.4 C 90 16 140/73 H 92 08/31/18 16:44 08/31/18 16:44 08/31/18 16:44 08/31/18 16:44 08/31/18 16:44 08/30/18 08/31/18 09/01/18 05:59 05:59 05:59 Intake Total 7000 Output Total 30 Balance 6970 PT 12.1 SEC (12.0-15.0) 08/30/18 05:30 INR 0.93 (0.83-1.16) 08/30/18 05:30 ICD10 Worksheet Patient Problems: Problems Problem Status Onset Abdominal pain Acute
[2018-09-01] MEDS: NICOTINE 21 MG/24 HR PATCH TD SCH (08:02)
[2018-09-01] MEDS: LOSARTAN POTASSIUM 50 MG TAB PO SCH (08:02)
[2018-09-01] MEDS: oxyCODONE IR 5 MG TAB PO PRN (08:03)
[2018-09-01] MEDS: PANTOPRAZOLE SODIUM 40 MG TAB PO SCH (08:03)
[2018-09-01] MEDS: ATORVASTATIN CALCIUM 40 MG TAB PO SCH (08:03)
[2018-09-01 08:10] VITALS: BP 132/74
--- NOTE | 2018-09-01 08:27 | PDDCSUM ---
Discharge Summary Discharge Summary: DISCHARGE SUMMARY Date of Admission August 30 Date of Discharge September 01 DISCHARGE DIAGNOSES -cholecystitis HOSPITAL COURSE The patient was admitted from the ED and taken to the operating room where they underwent an uneventful laparoscopic cholecystectomy. They were subsequently taken to the PACU and then the general medical floor. The hospital course was uneventful, their diet was advanced to a regular diet which was well tolerated and their pain was well controlled. They were discharged home in stable condition on the morning of the DISCHARGE MEDICATIONS Oxycodone as needed for pain DISPOSITION Home FOLLOW UP Follow up with me in the office in 10-14 days for a general post-operative visit
--- NOTE | 2018-09-01 08:56 | ASDISCHSUM ---
Discharge Information Plan Status:Home with No Needs Medically Cleared to Leave: Discharge Date: CM D/C Disposition:Home, Routine, Self-Care ADT D/C Disposition:Home, Routine, Self-Care Projected Discharge Date: Transportation at D/C: Discharge Delay Reason: Follow-Up Date: Discharge Slot: Final Diagnosis: Placement Information Patient Contact Information Contact Name:CAESAR Relationship: Address:[address] [place] [address] Work Phone: City:[place] Alternate Phone: State/Zip Code:[place] [address] Email: Financial Information Financial Class:Medicaid Primary Plan Desc:[employer] Primary Plan Number:[id number] Secondary Plan Desc: Secondary Plan Number: Assessment Information LACE LACE Length of stay for Answers: 2 days current admission Comorbidities - select Answers: Other Notes: HTN; HLD all that apply # of Emergency department Answers: 1-2 visits in the last 6 months Score: 4 Date Signed: 09/01/2018 08:54 AM Electronically Signed By:Ruby Cuevas [facility] CM Progress Note CM Note CM Note Notes: Pt is a 47 y/o man admitted for abdominal pain. Pt had his gallbladder removed. Pt will most likely d/c independent when medically stable. Referral made to [facility]. Pt is self employed. CM available for changes. Plan: Independent Date Signed: 08/31/2018 02:20 PM Electronically Signed By:KIKI Farley Case Management Discharge Plan Note Case Management Discharge Discharge Order Complete? Answers: Yes Patient to Obtain Answers: Independently Medications Discharge Comments Notes: Pt is medically ready to discharge. Date Signed: 09/01/2018 08:55 AM Electronically Signed By:Ruby Cuevas Intervention Information Intervention Type:No Admission Order Date of Service:08/30/2018 06:45 AM Patient Type:Observation Staff Member:DEE Nieves Courtney Hours: Discipline: Severity: Comment:received admit order from Chela hoover 08/31/18 at 0820 via telephone
== END 2018-09-01 09:28 | disposition home or self-care (01) ==
LOC: F1N 11:18
PROVIDERS: ADMIT Surgery; ATTEND Surgery
PROC: 0FT44ZZ Resection of Gallbladder, Percutaneous Endoscopic Approach (ICD-10-PCS; principal; 2018-08-30 16:00)
DX: K80.12 Calculus of gallbladder with acute and chronic cholecystitis without obstruction (principal); I10 Essential (primary) hypertension; G47.33 Obstructive sleep apnea (adult) (pediatric); Z72.0 Tobacco use
CPT/HCPCS: 47562; 74177; 76705; G0378; 82435-PO; 82565-PO; 82947-PO; 84132-PO; 84295-PO; 84484-ER; 84520-PO; 85014-ER; 96374; J0690; J1100; J1170; J1885; J2175; J2250; J2405; J2704; J3010; Q9967